=== PATIENT | female | born 1945 | race Caucasian/White ===

== ENCOUNTER → 2022-12-25 | Outpatient (CLI) | payer MEDICARE | LOC: M WHC 09:21 | PROVIDERS: ATTEND Nurse Practitioner Family | DX: R92.0 Mammographic microcalcification found on diagnostic imaging of breast (principal) | CPT/HCPCS: 77065; G0279 ==

== ENCOUNTER → 2023-01-01 | Outpatient (CLI) | payer MEDICARE ==
[~2023-01-01] MED LIST: **SFHN** LIDOCAINE 1% MDV 20ML VIAL ONE; **SFHN** SODIUM BICARBONATE 8.4% 10MEQ 10ML VIAL ONE; AMLO25TA PO; ATOR40TA75 PO; CALC-190 PO; ECOT81TA5 PO; GLUC3SPR NS; HUMA100I5 SC; LANTINJ4 SC; LOSA25TA13 PO; OMEP40CA4 PO; VESI5TAB2 PO
[2023-01-01 14:37] VITALS: TEMP 97.9
[2023-01-01 15:24] VITALS: BP 116/68; O2SAT 98
== END ==
LOC: M WHCPRO 13:35
PROVIDERS: ATTEND Nurse Practitioner Family
DX: N63.25 Unspecified lump in the left breast, overlapping quadrants (principal)